=== PATIENT | male | born 1980 | race Two or more races ===

== ENCOUNTER 2017-06-03 18:25 | Emergency (ER) | payer MEDICAID ==
[~2017-06-03] VITALS: Ht 188 cm; Wt 106.6 kg
--- NOTE | 2017-06-03 18:45 | NUR ---
PRESENTS TO ER C/O LEFT SIDED CHEST PAIN SINCE ABOUT 1600. PATIENT ALSO C/O BILATERAL HAND NUMBNESS. PATIENT IS A/OX 4. BREATHING EVEN AND UNLABORED. NO SOB. VITALS STABLE. SAFETY AND COMFORT MEASURES IN PLACE. AWAITING MD ORDERS.
[2017-06-03 18:52] LABS: BASOPHILS # (AUTO) 0.1 /CMM (0.0-0.2); BASOPHILS % (AUTO) 1.1 % (0.0-2.0); EOSINOPHILS # (AUTO) 0.1 /CMM (0.0-0.7); EOSINOPHILS % (AUTO) 1.2 % (0.0-6.0); HEMATOCRIT 42 % (39-51); LYMPHOCYTES % (AUTO) 34.2 % (20.0-44.0); MEAN CORPUSCULAR HEMOGLOBIN 31 PG (26.0-33.0); MEAN CORPUSCULAR HGB CONC 36 g/dl (31.0-36.0); MEAN CORPUSCULAR VOLUME 87 fL (80-96); MONOCYTES # (AUTO) 0.5 /CMM (0.1-1.30); MONOCYTES % (AUTO) 5.2 % (2.0-12.0); NEUTROPHILS # (AUTO) 5.2 /CMM (1.8-8.9); NEUTROPHILS % (AUTO) 58.3 % (43.0-81.0); PLATELET COUNT (AUTO) 230 /CMM (150-450); RDW COEFFICIENT OF VARIATION 12.3 (11.5-15.0); RED BLOOD CELL COUNT(AUTO) 4.84 MIL/uL (4.5-6.0); WHITE BLOOD COUNT (AUTO) 8.9 K/uL (4.3-11.0)
--- NOTE | 2017-06-03 18:53 | NUR ---
IV STARTED LAC 18G, BLOOD COLLECTED, SENT TO LAB.
[2017-06-03 19:08] LABS: INR 0.85 (0.85-1.15)
--- NOTE | 2017-06-03 19:10 | NUR ---
REPORT GIVEN TO SHELLIE MARTIN FOR ALLI.
[2017-06-03 19:32] LABS: CALCIUM, SERUM 9.2 mg/dL (8.5-10.1); CARBON DIOXIDE 28 mmol/L (21-32); CHLORIDE 104 mmol/L (98-107); CREATININE 1.2 mg/dL (0.6-1.3); GLUCOSE 113 mg/dL (74-106); POTASSIUM 3.7 mmol/L (3.5-5.1); SODIUM SERUM 141 mmol/L (136-145); UREA NITROGEN, BLOOD 19 mg/dL (7-18)
[2017-06-03 19:40] LABS: TROPONIN I < 0.017 ng/mL (0.00-0.056)
[2017-06-03] MEDS ORDERED: IOHEXOL-300 100 ML VIAL IV ONE (19:57)
[2017-06-03] MEDS ORDERED: CT SWABBABLE VALVE TRANS SET 1 EA INFUS.SET MC ONE (19:57)
--- NOTE | 2017-06-03 20:00 | NUR ---
PT OFF TO CT SCAN
--- NOTE | 2017-06-03 20:22 | NUR ---
PT BACK FROM CT
[2017-06-03] MEDS ORDERED: IBUPROFEN 600 MG TABLET PO ONE ×2 (20:51→21:00)
--- NOTE | 2017-06-03 21:01 | NUR ---
PT AWARE OF PLAN OF CARE. WILL CONTINUE TO MONITOR
--- NOTE | 2017-06-03 22:38 | NUR ---
AWAITING SECOND TROPONIN LEVEL IN ORDER TO D/C
[2017-06-03 23:05] VITALS: BP 146/99
== END 2017-06-03 23:07 | disposition home or self-care (01) ==
LOC: ER 18:32
DX: R07.9 Chest pain, unspecified (principal); F17.200 Nicotine dependence, unspecified, uncomplicated; F10.10 Alcohol abuse, uncomplicated; R20.0 Anesthesia of skin
CPT/HCPCS: 36415; 71045; 72126; 80048; 84484 ×2; 85025; 85730; 93005 ×2; 99285; 99406; A4606; Q9967; Z7610

== ENCOUNTER 2025-02-19 14:39 | Emergency (ER) | payer MEDICAID, OTHER ==
[~2025-02-19] VITALS: Ht 188 cm; Wt 136.1 kg
[2025-02-19] MEDS ORDERED: KETOROLAC TROMETHAMINE 15 MG/ML VIAL ONE (15:16)
[2025-02-19] MEDS ORDERED: NITROGLYCERIN 0.4 MG/TAB BOTTLE ONE (15:16)
[2025-02-19] MEDS ORDERED: ONDANSETRON HCL/PF 4 MG/2 ML VIAL ONE (15:16)
[2025-02-19 15:36] LABS: PLATELET COUNT (AUTO) 182 K/uL (150-450); RED BLOOD CELL COUNT(AUTO) 5.07 MIL/uL (4.5-6.0); RED CELL DISTRIBUTION WIDTH 13.1 % (11.5-15.0); WHITE BLOOD COUNT (AUTO) 7.0 K/uL (4.3-11.0)
[2025-02-19] MEDS: IV NS 0.9% 1,000 ML BAG IV ONE (15:37)
[2025-02-19] MEDS: KETOROLAC TROMETHAMINE 15 MG/ML VIAL IV ONE (15:38)
[2025-02-19] MEDS: NITROGLYCERIN 0.4 MG/TAB BOTTLE SL ONE (15:39)
[2025-02-19] MEDS: ONDANSETRON HCL/PF 4 MG/2 ML VIAL IVP ONE (15:39)
[2025-02-19 15:44] LABS: CALCIUM, SERUM 9.4 mg/dL (8.5-10.1); CREATININE 0.9 mg/dL (0.6-1.3); SODIUM SERUM 141 mmol/L (136-145); UREA NITROGEN, BLOOD 14 mg/dL (7-18)
[2025-02-19 15:50] LABS: ASPARTATE AMINOTRANSFERASE 19 U/L (15-37); TOTAL PROTEIN, SERUM 7.4 g/dL (6.4-8.2)
[2025-02-19] MEDS ORDERED: NITR0.4T48 SL (17:11)
[2025-02-19] MEDS ORDERED: LIDO30AD10 TP (17:11)
[2025-02-19 17:40] VITALS: BP 128/86; TEMP 98.3; O2SAT 98
== END 2025-02-19 17:41 | disposition home or self-care (01) ==
LOC: ER 14:52
DX: R07.9 Chest pain, unspecified (principal); R51.9 Headache, unspecified; R06.02 Shortness of breath; I10 Essential (primary) hypertension; E11.9 Type 2 diabetes mellitus without complications; K21.9 Gastro-esophageal reflux disease without esophagitis; F17.200 Nicotine dependence, unspecified, uncomplicated; Z87.442 Personal history of urinary calculi
CPT/HCPCS: 99285; 96374; 71045; 96361; 96375; 93005; 85025; 80048; 80076; 36415; 84484; J1885; J2405; J7030